=== PATIENT | female | born 1995 | race Caucasian/White ===

== ENCOUNTER → 2016-09-29 | Outpatient (CLI) | payer OTHER ==
[~2016-09-29] MED LIST: BCPILLS PO; MULT-513 PO
[2016-10-02 01:31] LABS: CHLAMYDIA TRACH RNA*** NOT DETECTED (NOT DETECTED); GC (NEIS GONORRHOEAE)RNA** NOT DETECTED (NOT DETECTED)
== END | disposition home or self-care (01) ==
LOC: C.LABSPEC 17:57
PROVIDERS: ATTEND Obstetrics & Gynecology
DX: Z01.419 Encounter for gynecological examination (general) (routine) without abnormal findings (principal); N92.6 Irregular menstruation, unspecified

== ENCOUNTER → 2016-10-08 | Outpatient (CLI) | payer OTHER ==
[2016-10-08 10:28] LABS: PREG INTERNAL NEGATIVE QC NEG CLEAR BACKGROUND; PREG INTERNAL POSITIVE QC POS CONTROL LINE
[2016-10-08 10:34] LABS: GLUCOSE LOG 1.9777; INSULIN FASTING 51.5 mU/L (3-25); THYROID STIMULATING HORMONE 3.49 uIu/ml (0.300-4.500)
[2016-10-08 10:35] LABS: CALCULATED INSULIN SENSITIVITY 0.271; INSULIN LOG 1.7118
[2016-10-08 10:36] LABS: PROLACTIN 13.51 ng/mL
== END | disposition home or self-care (01) ==
LOC: C.LAB1850 08:53
PROVIDERS: ATTEND Obstetrics & Gynecology
DX: N92.6 Irregular menstruation, unspecified (principal)

== ENCOUNTER 2017-04-27 16:39 | Emergency (ER) | payer OTHER ==
[~2017-04-27] VITALS: Ht 167.6 cm; Wt 92.5 kg
[2017-04-27 16:42] VITALS: Ht 167.6 cm; Wt 92.5 kg
[2017-04-27] MEDS ORDERED: BCPILLS PO (17:30)
[2017-04-27] MEDS ORDERED: MULT-513 PO (17:30)
--- NOTE | 2017-04-27 17:30 | DIAGNOSTIC IMAGING REPORT ---
RIGHT SHOULDER MIN 2 VIEWS ROUTINE CLINICAL HISTORY: Right shoulder pain status post trauma COMPARISON: None. DISCUSSION: There are postsurgical changes involve the right shoulder. No acute fractures or dislocations are visualized. No visible particular calcifications are evident. There is a 4 mm density within the right midlung zone. This likely represents either postinflammatory calcification or sclerotic lesion within the right scapula. IMPRESSION: Postsurgical change. No fractures or dislocations identified. Electronically signed by: Dane Fisher M.D. 04/27/2017 5:29 PM Dictated Date/Time: 04/27/2017 5:28 PM
[2017-04-27 18:07] VITALS: BP 121/84; PULSE 90; TEMP 36.8; O2SAT 99
--- NOTE | 2017-04-27 23:43 | EMERGENCY ROOM VISIT NOTE ---
History First contact with patient: 16:46 Chief Complaint: SHOULDER PAIN Stated Complaint: SHOULDER POPPED, PAIN History of Present Illness The patient is a 22 year old female who presents to the Emergency Room with complaints of worsening right shoulder pain for the past several days. The patient has a history of 2 shoulder surgeries in the past after injuries participating in cheerleading. Her orthopedic surgeon is from the [place] area and she does not have services locally. She does have an upcoming appointment in about 3-1/2 weeks with her orthopedist, who recommended that she come to the ER for x-rays and an arm sling. The patient has the ability to move the arm around fairly well, but she does describe decreased strength. She believes that she injured herself while lifting weights, and does not have a recent fall or other trauma. She rates her current discomfort is 7/10. Review of Systems More than 10 systems were reviewed and otherwise negative with the exception of history of present illness. Past Medical/Surgical History No chronic medical disease Family History No pertinent family history Social History Smoking Status: Never Smoker Occupation Status: [employer] student Current/Historical Medications Scheduled Control Pills ( Control Pills), 1 TAB PO DAILY Multivitamins/Minerals (Mvi With Minerals), 1 TAB PO DAILY Allergies Coded Allergies: Cephalexin (Verified Allergy, Severe, NAUSEA/VOMITING, 04/27/17) Physical Exam Vital Signs Date Time Temp Pulse Resp B/P (MAP) Pulse Ox O2 Delivery O2 Flow Rate FiO2 04/27/17 18:07 36.8 90 20 121/84 99 04/27/17 18:05 90 20 121/84 99 Room Air 04/27/17 16:42 36.8 90 20 125/88 99 Room Air Physical Exam VITALS: Vitals are noted on the nurse's note and reviewed by myself. Vital signs stable. GENERAL: Well-developed, well-nourished, white female, who is in no acute distress and resting comfortably. Patient is cooperative with the examination. NECK: Supple without nuchal rigidity. No lymphadenopathy. No thyromegaly. Cervical spine is nontender. HEART: Regular rate and rhythm without murmurs gallops or rubs. LUNGS: Clear to auscultation bilaterally without wheezes, rales or rhonchi. No retractions or accessory muscle use. MUSCULOSKELETAL: Positive tenderness is appreciated along the inferior lateral aspect of the scapula into the proximal humerus. Patient has decreased range of motion to abduction, external rotation, and extension. Positive empty can. Strength is 3/5. Negative sulcus. NEURO: Patient was alert and oriented to person place and time. CN II through XII grossly intact. Medical Decision & Procedures ER Provider Diagnostic Interpretation: RIGHT SHOULDER MIN 2 VIEWS ROUTINE CLINICAL HISTORY: Right shoulder pain status post trauma COMPARISON: None. DISCUSSION: There are postsurgical changes involve the right shoulder. No acute fractures or dislocations are visualized. No visible particular calcifications are evident. There is a 4 mm density within the right midlung zone. This likely represents either postinflammatory calcification or sclerotic lesion within the right scapula. IMPRESSION: Postsurgical change. No fractures or dislocations identified. ED Course Physical exam and history were performed. Nursing notes, EMR, and Medication List were personally reviewed. Patient appears to have right shoulder pain worsening over the past several days. She has a history of ongoing shoulder discomfort. X-ray was obtained and does not show acute abnormality. The patient was given an arm sling for comfort. My concern is that she may have injured her rotator cuff, as she has had similar injuries in the past. She will be following with orthopedics back home near [place], which appears reasonable. The patient will be treated conservatively with [id number] analgesics. She was certainly invited back to the ER with any new, worsening, or concerning symptoms. She voiced understanding and rated her discomfort a 0/10 at the time of departure. The chart was completed utilizing [employer] Speech Voice Recognition Software. Grammatical errors, random word insertions, pronoun errors, and incomplete sentences are an occasional consequence of this system due to software limitations, ambient noise, and hardware issues. Any formal questions or concerns about the content, text, or information contained within the body of this dictation should be directly addressed to the provider for clarification. . Medical Decision Differential diagnoses includes, but is not limited to: Sprain, strain, fracture , dislocation, subluxation, contusion, and others Impression Primary Impression: Right shoulder injury Departure Information Referrals No Doctor, Assigned (PCP) Patient Instructions My [facility] Health Problem Qualifiers Primary Impression: Right shoulder injury Encounter type: initial encounter Qualified Codes: S49.91XA - Unspecified injury of right shoulder and upper arm, initial encounter
== END 2017-04-27 18:07 | disposition home or self-care (01) ==
LOC: C.EDB 16:41 → C.EDD 18:07
DX: S49.91XA Unspecified injury of right shoulder and upper arm, initial encounter (principal); Z79.3 Long term (current) use of hormonal contraceptives; X50.9XXA Other and unspecified overexertion or strenuous movements or postures, initial encounter

== ENCOUNTER → 2017-09-16 | Outpatient (CLI) | payer OTHER ==
[2017-09-16 16:12] LABS: ALBUMIN 3.9 gm/dl (3.4-5.0); ALT/SGPT 32 U/L (12-78); AST/SGOT 19 U/L (15-37); BLOOD UREA NITROGEN 11 mg/dl (7-18); CALCIUM 8.8 mg/dl (8.5-10.1); CARBON DIOXIDE 24 mmol/L (21-32); CREATININE 0.63 mg/dl (0.60-1.20); GLUCOSE 83 mg/dl (70-99); POTASSIUM 3.9 mmol/L (3.5-5.1); SODIUM 136 mmol/L (136-145)
[2017-09-16 16:22] LABS: ALKALINE PHOSPHATASE 89 U/L (45-117); TOTAL PROTEIN 7.4 gm/dl (6.4-8.2)
[2017-09-19 13:23] LABS: MICROSOMAL AB <1 IU/ML (<9)
== END | disposition home or self-care (01) ==
LOC: C.LAB1850 12:05
PROVIDERS: ATTEND Internal Medicine Endocrinology, Diabetes & Metabolism
DX: E07.9 Disorder of thyroid, unspecified (principal); E28.2 Polycystic ovarian syndrome

== ENCOUNTER → 2017-11-14 | Outpatient (CLI) | payer OTHER | END | disposition home or self-care (01) | LOC: C.LABSPEC 17:39 | PROVIDERS: ATTEND Obstetrics & Gynecology | DX: N89.8 Other specified noninflammatory disorders of vagina (principal) ==

== ENCOUNTER → 2017-11-23 | Outpatient (CLI) | payer OTHER | END | disposition home or self-care (01) | LOC: C.LABSPEC 08:35 | PROVIDERS: ATTEND Physician Assistant | DX: Z01.419 Encounter for gynecological examination (general) (routine) without abnormal findings (principal) ==

== ENCOUNTER → 2017-11-23 | Outpatient (CLI) | payer OTHER | END | disposition home or self-care (01) | LOC: C.PAPS 10:39 | PROVIDERS: ATTEND Physician Assistant | DX: Z01.419 Encounter for gynecological examination (general) (routine) without abnormal findings (principal) ==